=== PATIENT | male | born 1980 | race Caucasian/White ===

== ENCOUNTER 2023-07-02 08:24 | Outpatient (REF) | payer MEDICARE, MEDICAID, SELFPAY ==
[2023-07-02 15:45] LABS: MANUAL DIFF FLAG NO
[2023-07-02 15:49] LABS: Basophils Percent Auto 0.3 % (0-2); Eosinophils Percent Auto 0.6 % (0-4); Hematocrit 47.9 % (42.0-52.0); Hemoglobin 15.8 g/dl (14.0-18.0); Imm Gran Abs Auto 0.03 X10*3/uL (0.00-0.03); Imm Gran Pct Auto 0.5 % (0.0-0.4); Lymphocytes Absolute Auto 1.9 X10*3/uL (1.2-4.9); Lymphocytes Percent Auto 30.1 % (20-40); Mean Corpuscular Hemoglobin 29.6 pg (27.0-33.0); Mean Corpuscular Volume 89.9 fL (80.0-98.0); Mean Platelet Volume 10.6 fL (9.4-12.4); Monocytes Absolute Auto 0.6 X10*3/uL (0.1-1.2); Monocytes Percent Auto 10.4 % (2-11); Neutrophils Absolute Auto 3.6 x10*3/uL (2.0-8.3); Neutrophils Percent Auto 58.1 % (45-73); Platelet Count 166 X10*3/uL (160-400); Red Blood Count 5.33 X10*6/uL (4.60-5.80); Red Cell Distribution Width 12.4 % (11.0-16.0); White Blood Count 6.2 X10*3/uL (4.8-10.8)
[2023-07-02 15:58] LABS: Alanine Aminotransferase 22 U/L (0-40); Albumin Level 4.3 g/dL (3.5-5.0); Alkaline Phosphatase 76 U/L (39-117); Anion Gap 11 (12-20); Aspartate Amino Transferase 20 U/L (5-37); Bilirubin Direct 0.2 mg/dL (0.0-0.5); Bilirubin Total 0.4 mg/dL (0.0-1.0); Blood Urea Nitrogen 10 mg/dL (9-16); Calcium 10.1 mg/dL (8.4-10.2); Carbon Dioxide 29 mmol/L (22-29); Chloride 105 mmol/L (96-108); Cholesterol 218 mg/dL (<200); Estimated Glomerular Filt Rate > 60; Glucose Fasting 78 mg/dL (60-99); HDL Cholesterol 47 mg/dL (>40); LDL Cholesterol Calculated 141 mg/dL (<100); Sodium 141 mmol/L (135-145); Total Protein 7.2 g/dL (6.5-8.0); Triglycerides 151 mg/dL (<150)
== END 2023-07-02 08:25 | disposition home or self-care (01) ==
LOC: HO.CHCLDS 08:24
PROVIDERS: Visit Provider Student in an Organized Health Care Education/Training Program
DX: R56.9 Unspecified convulsions (principal); E66.3 Overweight
CPT/HCPCS: 36415; 80048; 80061; 80076; 85025

== ENCOUNTER 2024-08-12 13:20 | Outpatient (REF) | payer MEDICARE, MEDICAID, SELFPAY ==
--- NOTE | ~2024-08-12 | XR_ITS ---
EXAMINATION: XR THORACIC SPINE 3 VIEWS CLINICAL INFORMATION: Curvature of thoracic spine. COMPARISON: None available. TECHNIQUE: 3 views of the thoracic spine were obtained. FINDINGS: There is no fracture or bone destruction seen and the vertebral alignment is normal. There is no disc space narrowing. There is no abnormality of the paraspinal soft tissues. XR/XR thoracic spine 2V IMPRESSION: Unremarkable examination. Electronically signed by: Kamla Miller MD 10/16/2024 02:17 PM NING STINSON
== END 2024-08-12 13:21 | disposition home or self-care (01) ==
LOC: HO.XRAY 13:20
PROVIDERS: PCP Student in an Organized Health Care Education/Training Program; Visit Provider Internal Medicine
DX: M43.9 Deforming dorsopathy, unspecified (principal)
CPT/HCPCS: 72070

== ENCOUNTER 2025-02-23 10:56 | Outpatient (REF) | payer MEDICARE, MEDICAID, SELFPAY ==
--- OUTSIDE RECORDS SUMMARY | 2025-02-23 13:11 | XMS_ITS | Clinical Summary ---
Author Organization [employer] Address [address] [place] [address] [address] [place] [address] Care Team Providers Care Case Making Machine Operator Name Role Phone Geraldine Olson MD Primary Care Provider [phone] Allergies No known active allergies Medications lamoTRIgine (LaMICtal) 100 MG tabletIndications :Generalized seizures (CMS/HCC) Take 1 tablet (100 mg) by mouth 2 times daily. 60 tablet 11 4 Active lamoTRIgine (LaMICtal) 150 MG tabletIndications :Generalized seizures (CMS/HCC) Take 1 tablet (150 mg) by mouth 2 times daily. 60 tablet 4 Active clonazePAM (KlonoPIN) 0.5 MG tabletIndications :Generalized seizures (CMS/HCC) Take 1 tablet (0.5 mg) by mouth 2 times daily. 60 tablet 4 Active Anoro Ellipta 62.5-25 MCG/ACT aerosol powder INHALE 1 PUFF BY MOUTH EVERY MORNING AT THE SAME TIME EVERY DAY 60 each 2 4 Active terbinafine (LamISIL) 250 MG tabletIndications :Onychomycosis TAKE 1 TABLET(250 MG) BY MOUTH IN THE MORNING 30 tablet 2 4 Active albuterol 108 (90 Base) MCG/ACT inhalerIndication s:Mild intermittent asthma without complication INHALE 2 PUFFS BY MOUTH EVERY 6 HOURS 6.7 g 11 5 Active loratadine (Claritin) 10 MG tabletIndications :Allergy, subsequent encounter TAKE 1 TABLET BY MOUTH EVERY MORNING 90 tablet 1 5 Active Active Problems Problem Noted Date Diagnosed Date Generalized seizures 05/08/2023 Mild intermittent asthma 03/27/2018 Encounters Date Type Department Care Team Description 02/23/2025 10:15 AM EDT Office Visit [facility] [address] [place] [address] Geraldine Olson MD Generalized seizures (CMS/HCC) (Primary Dx); Mild intermittent asthma without complication; Abdominal wall hematoma, initial encounter; Dietary counseling; Exercise counseling; Class 2 obesity without serious comorbidity with body mass index (BMI) of 37.0 to 37.9 in adult, unspecified obesity type; Encounter for immunization; Screen for STD (sexually transmitted disease) 02/23/2025 Travel 12/20/2024 Refill [facility] [address] [place] [address] Geraldine Olson MD Allergy, subsequent encounter 12/13/2024 Refill [facility] [address] [place] [address] Geraldine Olson MD Mild intermittent asthma without complication from Last 3 Months Immunizations Name Administration Dates Next Due Influenza injectable quadriv alent IIV4 with preservative 08/24/2018 Influenza injectable quadrivalent preservative f ree 11/13/2023,09/25/2022 Influenza, IIV3, injectable 07/25/2014 Influenza, Split (incl. purified surface antigen ) 10/12/2013 Influenza, seasonal, injectable, preservative fr ee 07/25/2016,09/08/2015 Pneumococcal Conjugate PCV 20 02/23/2025 Tdap 02/23/2025,06/08/2013 Family History Medical History Relation Name Comments Diabetes Father Hypertension Father Asthma Mother Hyperlipidemia Mother Hypertension Mother Relation Name Status Comments Father Mother Social History Tobacco Use Types Packs/Day Years Used Date Smoking Tobacco: Never Smokeless Tobacco: Never Tobacco Cessation:Counseling Given: Not Answered Alcohol Use Standard Drinks/Week Comments Never 0 (1 standard drink = 0.6 oz pur e alcohol) Depression Answer Date Recorded Patient Health Questionnaire-9 Score 0 02/23/2025 Patient Health Questionnaire-9 Score 0 02/23/2025 Last PHQ-9: Questionnaire Data Not on file 0 02/23/2025 Housing Stability Answer Date Recorded What is your housing situation today? I have hasmukh tubbs 02/23/[address] you li ve. Do you have problems with any of the following? None of the above 02/23/2025 Food Insecurity Answer Date Recorded Within the past 12 months, y ou worried that your food would run out before you got money to buy more: Never True 02/23/2025 Within the past 12 months,th e food you bought just didn't last and you didn't have enough money to get more: Never True Transportation Answer Date Recorded In the past 12 months, has l ack of transportation kept you from medical appts, meetings, work or from getting things needed for daily living? No 02/23/2025 Utilities Answer Date Recorded In the past 12 months, has t he electric, gas, oil or water company threatened to shut off services in your home? No 02/23/2025 Depression Answer Date Recorded Patient Health Questionnaire-2 Score 0 02/23/2025 Internet Access Answer Date Recorded Internet Access Q1 No 02/23/2025 Internet Access Q2 I do not want or need it 02/02 Sex and Gender Information Value Date Recorded Sex Assigned at Male 09/02/2022 10:18 AM EDT Legal Sex Male 10:18 AM EDT Gender Identity Male 09/02/2022 10:18 AM EDT Sexual Orientation Straight 09/02/2022 10 :18 AM EDT Last Filed Vital Signs Vital Sign Reading Time Taken Comments Blood Pressure 117/81 02/23/2025 10:19 AM EDT Pulse 96 02/23/2025 10:19 AM EDT Temperature 36.4 ??C (97.6 ??F) 02/23/2025 10:19 AM E DT Respiratory Rate 20 02/23/2025 10:19 AM EDT Oxygen Saturation 97% 02/23/2025 10:19 AM EDT Inhaled Oxygen Concentration - - Weight 112 kg (247 lb) 02/23/2025 10:19 AM EDT Height 174 cm (5' 8.5 ) 02/23/2025 10:19 AM EDT Body Mass Index 37.01 02/23/2025 10:19 AM EDT Plan of Treatment Health Maintenance Due Date Last Done Comments HIV Screening 1980 Family Planning (PISQ) 1995 Hepatitis C Screening 1998 Hepatitis B Vaccines (1 of 3 - 19+ 3-dose series) 1999 Influenza Vaccine (#1) 2025 , 09/25/2022, 08/24/2018, Additional history exists Postponed from 07/04/2024 (Patient Refused) Alcohol/Substance Use Screening 02/23/2026 02/23/2025 COVID-19 Vaccine ( season) 2026 02/22/2022, 03/29/2021, 03/08/2021 Postponed from 07/04/2024 (Patient Refused) Depression Screening 02/23/2026 02/23/2025, 02/24/20 SDOH Screening 02/23/2026 02/23/2025 Tobacco Screening 02/23/2026 02/23/2025 Lipid Panel 07/02/2028 07/02/2023, 12/, 09/19/2021 Zoster Vaccines (1 of 2) 2030 DTaP/Tdap/Td Vaccines (3 - Td or Tdap) 02/23/2035 02/23/2025, 06/08/2013 RSV Patients and Patients Aged 60 years or older (1 - 1-dose 75+ series) 2055 Pneumococcal Vaccine: Pediatrics (0 to 5 Years) and At-Risk Patients (6 to 49) Years) Completed 02/23/2025 HIB Vaccines Aged Out No longer eligi ble based on patient's age to complete this topic HPV Vaccines Aged Out No longer eligi ble based on patient's age to complete this topic Hepatitis A Vaccines Aged Out No long er eligible based on patient's age to complete this topic IPV Vaccines Aged Out No longer eligi ble based on patient's age to complete this topic Meningococcal Vaccine Aged Out No sophia elizabeth eligible based on patient's age to complete this topic RSV under 20 months Aged Out No longe r eligible based on patient's age to complete this topic Rotavirus Vaccines Aged Out No longer eligible based on patient's age to complete this topic Procedures Procedure Name Priority Date/Time Associated Diagnosis Comments LIPID PANEL, STANDARD Routine 07/02/2023 8:28 AM EDT Generalized seizures (CMS/HCC) Overweight from Last 3 Months or Most Recently Relevant to Health Maintenance Results * (ABNORMAL) Lipid Panel, Standard (07/02/2023 8:28 AM EDT) Triglycerides 151(H) <150 mg/dL [facility] Comment:Desirable Triglyceri de: less than 150 mg/dLBorderline High Triglyceride 150-199 mg/dLHigh Triglyceride: 200-499 mg/dLVery High Triglyceride: greater than or equal to 5OO mg/dL Cholesterol 218(H) <200 mg/dL [facility] Comment:Desirable Cholestero l: less than 200 mg/dLBorderline High Cholesterol: 200-239 mg/dLHigh Cholesterol: greater than 239 mg/dL LDL Cholesterol Calculated 141(H) <100 mg/dL [facility] Comment:Desirable LDL: less than 100 mg/dLNear Optimal/Above Optimal LDL: 110- 129 mg/dLBorderline High LDL: 130-159 mg/dLHigh LDL: 160-189 mg/dLVery High LDL: greater than or equal to 190 mg/dL HDL Cholesterol 47 >40 mg/dL [facility] Comment:Desirable HDL: great er than 40 mg/dL Note: This HDL assay may give artificially low results in patients with liver disease. Blood Venous blood specimen / Unknown 07/02/2023 8:28 AM EDT 07/02/2023 3:39 PM EDT us Geraldine Olson MD LAB BLOOD ORDERABLES Final Resul t [facility] [address] [place] [phone] from Last 3 Months or Most Recently Relevant to Health Maintenance Insurance MEDICARE [facility] STANDARD Advance Directives Documents on File Type Date Recorded Patient Global Safety Officer Expl anation HealthCare Proxy 11/13/2023 HCP Care Teams Case Making Machine Operator Relationship Specialty Start Date End Date Geraldine Olson MD [address] [place] [id number] PCP - General Family Medicine 06/08/13
--- OUTSIDE RECORDS SUMMARY | 2025-02-23 13:11 | XMS_ITS | Encounter Summary ---
Author Organization [employer] Address [address] [place] [address] [address] [address] Care Team Providers Care It Consulting Manager Name Role Phone Geraldine Olson MD Primary Care Provider [phone] Reason for Referral * Imaging (Routine) - Authorized Specialty Diagnoses / Procedures Referred By Contac t Referred To Contact Radiology Diagnoses Abdominal wall hematoma, initial encounter Procedures US Abdomen Complete Geraldine Olson MD [address] [place] [address] Phone: tel: fax: [address] Phone: tel: fax: Referral ID Status Reason Start Date Expiration Date V isits Requested Visits Authorized [id number] Authorized 02/23/2025 02/23/2026 1 1 Reason for Visit * Reason Comments Adult care Encounter Details Date Type Department Care Team (Late st Contact Info) Description 02/23/2025 10:15 AM EDT Office Visit [facility] [address] [place] [address] Geraldine Olson MD [address] [place] [address] Generalized seizures (CMS/HCC) (Primary Dx); Mild intermittent asthma without complication; Abdominal wall hematoma, initial encounter; Dietary counseling; Exercise counseling; Class 2 obesity without serious comorbidity with body mass index (BMI) of 37.0 to 37.9 in adult, unspecified obesity type; Encounter for immunization; Screen for STD (sexually transmitted disease) Social History Tobacco Use Types Packs/Day Years [...] Orientation Straight 09/02/2022 10 :18 AM EDT documented as of this encounter Last Filed Vital Signs Vital Sign Reading [...] Mass Index 37.01 02/23/2025 10:19 AM EDT documented in this encounter Progress Notes * Geraldine Olson MD - 02/23/2025 10:15 AM EDT Images from the original note were not included. Subjective Patient ID: Pan Bond Jr is a 44 y.o. male who presents for Adult care. Is here for interval follow up and wellness He noticed a huge hematoma on his abd 3days back.He does not recall any trauma Review of Systems Constitutional: Negative. Respiratory: Negative. Cardiovascular: Negative. Gastrointestinal: Negative. Genitourinary: Negative. Objective Physical Exam Constitutional: Appearance: Normal appearance. HENT: Head: Normocephalic and atraumatic. Right Ear: Tympanic membrane normal. Left Ear: Tympanic membrane normal. Mouth/Throat: Mouth: Mucous membranes are moist. Eyes: Pupils: Pupils are equal, round, and reactive to light. Cardiovascular: Rate and Rhythm: Normal rate and regular rhythm. Pulmonary: Effort: Pulmonary effort is normal. Breath sounds: Normal breath sounds. Abdominal: General: Abdomen is flat. Palpations: Abdomen is soft. Comments: Hematoma Musculoskeletal: General: Normal range of motion. Cervical back: Normal range of motion. Lumbar back: No spasms or tenderness. Skin: General: Skin is warm. Neurological: Mental Status: He is alert. Assessment/Plan Diagnoses and all orders for this visit: Generalized seizures (CMS/HCC) Comments: Stable No new episodes Orders: - Hepatic Function Panel; Future - Basic Metabolic Panel; Future Mild intermittent asthma without complication Comments: Stable o Proair as needed Abdominal wall hematoma, initial encounter Comments: USG ordered Advised warm compress Orders: - US Abdomen Complete; Future Dietary counseling Exercise counseling Class 2 obesity without serious comorbidity with body mass index (BMI) of 37.0 to 37.9 in adult, unspecified obesity type Maintain a low-sodium diet (less than 2 grams per day). Maintain a regular cardiovascular exercise program. Advised to maintain a low-fat, low-cholesterol diet. Counseled regarding importance of weight loss. Counseled re: potential co-morbidities including cardiovascular disease. - Lipid Panel, Standard; Future Encounter for immunization - TDAP VACCINE 7 yrs + - PCV-20 VACCINE 6 wks + Screen for STD (sexually transmitted disease) - Hepatitis C Antibody with Reflex to HCV, RNA, Quantitative, Real-Time PCR; Future - HIV-1/2 Antigen and Antibodies, Fourth Generation, with Reflexes; Future documented in this encounter Plan of Treatment Scheduled Orders Name Type Priority Associated Diagnoses Orde r Schedule US Abdomen Complete Imaging Routine Abdominal wall hematoma, initial encounter Expected: 02/23/2025, Expires: 02/23/2026 Hepatic Function Panel Lab Routine Generalized seizures (CMS/HCC) Expected: 02/23/2025 (Approximate), Expires: 02/23/2026 Lipid Panel, Standard Lab Routine Class 2 obesity without serious comorbidity with body mass index (BMI) of 37.0 to 37.9 in adult, unspecified obesity type Expected: 02/23/2025 (Approximate), Expires: 02/23/2026 Basic Metabolic Panel Lab Routine Generalized seizures (CMS/HCC) Expected: 02/23/2025 (Approximate), Expires: 02/23/2026 Hepatitis C Antibody with Reflex to HCV, RNA, Quantitative, Real-Time PCR Lab Routine Screen for STD (sexually transmitted disease) Expected: 02/23/2025, Expires: 02/23/2026 HIV-1/2 Antigen and Antibodies, Fourth Generation, with Reflexes Lab Routine Screen for STD (sexually transmitted disease) Expected: 02/23/2025 (Approximate), Expires: 02/23/2026 documented as of this encounter Visit Diagnoses Diagnosis Generalized seizures (CMS/HCC)- Primary Mild intermittent asthma without complication Abdominal wall hematoma, initial encounter Dietary counseling Dietary surveillance and counseling Exercise counseling Class 2 obesity without serious comorbidity with body mass index (BMI) of 37.0 to 37.9 in adult, unspecified obesity type Encounter for immunization Screen for STD (sexually transmitted disease) Screening examination for venereal disease documented in this encounter Additional Health Concerns Assessment Noted Time PHQ-9 Depression Total Score: 0 02/24/20 25 10:20 AM EDT documented as of this encounter Care Teams It Consulting Manager Relationship Specialty Start Date End Date Geraldine Olson MD [address] [place] [id number] PCP - General Family Medicine 06/08/13 documented as of this encounter
--- OUTSIDE RECORDS SUMMARY | 2025-02-23 13:11 | XMS_ITS | Encounter Summary ---
Author Organization [employer] Address [address] [facility] [address] [place] [address] Care Team Providers Care Repair Supervisor Name Role Phone Geraldine Olson MD Primary Care Provider Encounter Details Date Type Department Care Team (Latest Contact Info) Description 02/23/2025 Travel Social History Tobacco Use Types Packs/Day Years Used Date Smoking Tobacco: Never Smokeless Tobacco: Never Alcohol Use Standard Drinks/Week Comments Never 0 [...] AM EDT documented as of this encounter Plan of Treatment Not on file documented as of this encounter Visit Diagnoses Not on filedocumented in this encounter Additional Health Concerns Assessment Noted Time PHQ-9 Depression Total Score: 0 02/24/20 25 10:20 AM EDT documented as of this encounter Care Teams Repair Supervisor Relationship Specialty Start Date End Date Geraldine Olson MD [address] [place] [address] PCP - General Family Medicine 06/08/13 documented as of this encounter
--- OUTSIDE RECORDS SUMMARY | 2025-02-23 13:11 | XMS_ITS | Encounter Summary ---
Author Organization [employer] Address [address] [facility] [address] [place] [address] Care Team Providers Care Sap Administrator Name Role Phone Geraldine Olson MD Primary Care Provider [phone] Reason for Visit * Reason Comments Med Refill Encounter Details Date Type Department Care Team ([facility] Contact Info) Description 10/13/2023 Refill [facility] [address] [place], [place] [phone] Geraldine Olson MD [address] [place] [address] Social History Tobacco Use Types Packs/Day Years Used Date Smoking Tobacco: Never Smokeless Tobacco: Never Alcohol Use Standard Drinks/Week Comments Never 0 (1 standard drink = 0.6 oz pur e alcohol) Depression Answer Date Recorded Patient Health Questionnaire-9 Score 0 05/08/2023 Housing Stability Answer Date Recorded What is your housing situation today? I have hasmukh tubbs 08/22/[address] you li ve. Do you have problems with any of the following? None of the above 08/22/2023 Food Insecurity Answer Date Recorded Within the past 12 months, y ou worried that your food would run out before you got money to buy more: Never True 08/22/2023 Within the past 12 months,th e food you bought just didn't last and you didn't have enough money to get more: Never True Transportation Answer Date Recorded In the past 12 months, has l ack of transportation kept you from medical appts, meetings, work or from getting things needed for daily living? No 08/22/2023 Utilities Answer Date Recorded In the past 12 months, has t he electric, gas, oil or water company threatened to shut off services in your home? No 08/22/2023 Depression Answer Date Recorded Patient Health Questionnaire-2 Score 0 05/08/2023 Sex and Gender Information Value Date Recorded [...] Noted Time PHQ-9 Depression Total Score: 0 05/08/20 23 11:52 AM EDT documented as of this encounter Care Teams Sap Administrator Relationship Specialty Start Date End Date Geraldine Olson MD [address] [place] [address] PCP - General Family Medicine 06/08/13 documented as of this encounter
[2025-02-23 14:33] LABS: Alanine Aminotransferase 46 U/L (0-40); Albumin Level 4.2 g/dL (3.5-5.0); Alkaline Phosphatase 83 U/L (39-117); Anion Gap 10 (12-20); Aspartate Amino Transferase 30 U/L (5-37); Bilirubin Direct 0.1 mg/dL (0.0-0.5); Bilirubin Total 0.4 mg/dL (0.0-1.0); Blood Urea Nitrogen 11 mg/dL (9-16); Calcium 9.6 mg/dL (8.4-10.2); Carbon Dioxide 28 mmol/L (22-29); Chloride 106 mmol/L (96-108); Cholesterol 232 mg/dL (<200); Estimated Glomerular Filt Rate > 60; Glucose Random 96 mg/dL (60-115); HDL Cholesterol 49 mg/dL (>40); LDL Cholesterol Calculated 159 mg/dL (<100); Sodium 140 mmol/L (135-145); Total Protein 7.2 g/dL (6.5-8.0); Triglycerides 123 mg/dL (<150)
[2025-02-24 04:01] LABS: HIV AB/AG Nonreactive (Nonreactive); HIV Num 1 0.06 S/CO (0.00-0.99); ~HepC Num1 0.12 S/CO (0.00-0.79); ~Hepatitis C Antibody Nonreactive (Nonreactive)
== END 2025-02-23 10:57 | disposition home or self-care (01) ==
LOC: HO.CHCLDS 10:56
PROVIDERS: Visit Provider Student in an Organized Health Care Education/Training Program
DX: R56.9 Unspecified convulsions (principal); E66.812 Obesity, class 2; Z68.37 Body mass index [BMI] 37.0-37.9, adult; Z11.3 Encounter for screening for infections with a predominantly sexual mode of transmission
CPT/HCPCS: 36415; 80048; 80061; 80076; 86803; 87389